=== PATIENT | male | born 1975 | race American Indian/Alaskan Native ===

== ENCOUNTER 2019-01-17 19:44 | Emergency (ER) | payer SELFPAY ==
--- NOTE | 2019-01-17 20:21 | Emergency Department Report ---
Blank Doc - Documentation Documentation: this is a 43-year-old male that presents with back itching. Denies any facial swelling or angioedema. This initial assessment/diagnostic orders/clinical plan/treatment(s) is/are subject to change based on patient's health status, clinical progression and re- assessment by fellow clinical providers in the ED. Further treatment and workup at subsequent clinical providers discretion. Patient/guardians urged not to elope from the ED as their condition may be serious if not clinically assessed and managed. Initial orders include: 1- Patient sent to [facility] for further evaluation and treatment
[2019-01-17] MEDS ORDERED: NORCO 5/325 PO ONE (23:54)
[2019-01-17] MEDS ORDERED: DELTASONE PO ONE (23:54)
[2019-01-17] MEDS ORDERED: VALTREX PO ONE (23:54)
--- NOTE | 2019-01-18 01:18 | Emergency Department Report ---
ED Rash HPI - HPI Chief Complaint: Skin Rash Stated Complaint: ITCHING Time Seen by Provider: 01/17/19 20:20 Duration: 2 Days Location: Back (left flank ) Rash Symptoms: Yes Itching, Yes Blistering, No Facial Swelling, No Tongue/Oral Swelling, No Breathing Difficulties, No Peeling, No Fever, No Lightheaded, No Malaise, No Myalgias Severity: moderate Other History: this is a 43-year-old male that presents with back itching. Denies any facial swelling or angioedema. ED Review of Systems ROS: Stated complaint: ITCHING Other details as noted in HPI Constitutional: denies: chills, fever Eyes: denies: eye pain, eye discharge, vision change ENT: denies: ear pain, throat pain Respiratory: denies: cough, shortness of breath, wheezing Cardiovascular: denies: chest pain, palpitations Endocrine: no symptoms reported Gastrointestinal: denies: abdominal pain, nausea, diarrhea Genitourinary: denies: urgency, dysuria Musculoskeletal: denies: back pain, joint swelling, arthralgia Skin: rash, lesions, pruritus Neurological: denies: headache, weakness, paresthesias Psychiatric: denies: anxiety, depression Hematological/Lymphatic: denies: easy bleeding, easy bruising ED Past Medical Hx - Past Medical History Previous Medical History?: Yes Hx Hypertension: Yes Additional medical history: anemia - Surgical History Past Surgical History?: No - Social History Smoking Status: Never Smoker Substance Use Type: None - Medications Home Medications: Home Medications Medication Instructions Recorded Confirmed Last Taken Type Ferrous Sulfate [Feosol 325 MG tab] 325 mg PO TID #90 tablet 04/05/17 Unknown Rx Lidocaine [Lidocaine Cream] 15 gm TP TID PRN #1 tube 01/18/19 Unknown Rx Valacyclovir HCl [Valtrex] 1,000 mg PO BID 10 Days #20 tablet 01/18/19 Unknown Rx predniSONE [Deltasone] 40 mg PO QDAY 5 Days #10 tab 01/18/19 Unknown Rx traMADol [Ultram] 50 mg PO Q6HR PRN #12 tablet 01/18/19 Unknown Rx Rash Exam - Exam General: Vital signs noted. No distress. Alert and acting appropriately. HEENT: No Periorbital Edema, No Conjuctival Injection, No Chemosis, No Perioral Edema, No Tongue Edema, No Uvular Edema, No Compromised Airway, No Drooling Lungs: Yes Good Air Exchange (Normal Breath Sounds), No Wheezes, No Ronchi, No Stridor, No Cough, No Labored Respirations, No Retractions, No Use of Accessory Muscles, No Other Abnormal Lung Sounds Heart: Yes Regular, No Murmur Skin: Yes Urticarial Rash, Yes Excoriations, Yes Tenderness, Yes Erythema, Yes Encrustations, No Weeping, No Edema Other: Positive: Abdomen Normal, Neurologic Normal, Musculoskeletal Normal ED Course Vital Signs 01/17/19 01/18/19 20:23 00:45 Temperature 97.2 F L Pulse Rate 91 H Respiratory 18 16 Rate Blood Pressure 166/104 O2 Sat by Pulse 100 Oximetry ED Medical Decision Making - Medical Decision Making this is a shingles rash t left flank, plan prednisone, valtrax, ultram follow up with pcp in 2-3 days return to ed if symptoms worsen, pt verbalized agreement and understanding of discharge plan Critical care attestation.: If time is entered above; I have spent that time in minutes in the direct care of this critically ill patient, excluding procedure time. ED Disposition Clinical Impression: Shingles Qualifiers: Herpes zoster complications: without complications Qualified Code(s): B02.9 - Zoster without complications Disposition: DC-01 TO HOME OR SELFCARE Is pt being admited?: No Does the pt Need Aspirin: No Condition: Stable Instructions: Herpes Zoster (ED) Prescriptions: predniSONE [Deltasone] 40 mg PO QDAY 5 Days #10 tab Lidocaine [Lidocaine Cream] 15 gm TP TID PRN #1 tube PRN Reason: pain traMADol [Ultram] 50 mg PO Q6HR PRN #12 tablet PRN Reason: Pain Valacyclovir HCl [Valtrex] 1,000 mg PO BID 10 Days #20 tablet Referrals: BENJY NOWAK MD [Primary Care Provider] - 3-5 Days Forms: Work/School Release Form(ED) Time of Disposition: 01:18
[2019-01-18 01:54] VITALS: BP 145/91
== END 2019-01-18 01:54 | disposition home or self-care (01) ==
LOC: ED 19:44
DX: B02.9 Zoster without complications (principal)
CPT/HCPCS: 99282; J7512

== ENCOUNTER 2019-04-30 08:43 | Emergency (ER) | payer OTHER ==
[2019-04-30 08:52] VITALS: BP 138/82
[2019-04-30] MEDS ORDERED: IBUPROFEN 600 MG TAB PO ONE (09:01)
[2019-04-30] MEDS ORDERED: ACETAMINOPHEN 500 MG TAB PO ONE (10:03)
[2019-04-30] MEDS ORDERED: AMOXICILLIN/K CLAV 875/125MG TAB PO ONE (10:07)
--- NOTE | 2019-04-30 10:11 | Emergency Department Report ---
HPI - General Chief Complaint: Headache Time Seen by Provider: 04/30/19 09:57 - HPI HPI: 43-year-old -Turkish male presents to the emergency department with complaint of a one-day history of fever, chills, bodyaches, sore throat and headache. He has not taken anything for her symptoms prior to presentation. He has a past medical history of hypertension. 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 No sick contacts at home. He has some pain with swallowing but is able to do so. He denies any vision change, slurred speech or any neurological deficits. ED Past Medical Hx - Past Medical History Previous Medical History?: Yes Hx Hypertension: Yes Additional medical history: anemia - Social History Smoking Status: Never Smoker - Medications Home Medications: Home Medications Medication Instructions Recorded Confirmed Last Taken Type Ferrous Sulfate [Feosol 325 MG tab] 325 mg PO TID #90 tablet 04/05/17 Unknown Rx Lidocaine [Lidocaine Cream] 15 gm TP TID PRN #1 tube 01/18/19 Unknown Rx Valacyclovir HCl [Valtrex] 1,000 mg PO BID 10 Days #20 tablet 01/18/19 Unknown Rx predniSONE [Deltasone] 40 mg PO QDAY 5 Days #10 tab 01/18/19 Unknown Rx traMADoL [Ultram] 50 mg PO Q6HR PRN #12 tablet 01/18/19 Unknown Rx Amoxicillin [Trimox CAP] 500 mg PO Q8H #30 capsule 04/30/19 Unknown Rx ED Review of Systems ROS: Stated complaint: MIGRAINE Other details as noted in HPI Constitutional: chills, fever Eyes: denies: eye pain, vision change ENT: throat pain. denies: ear pain Respiratory: denies: cough, shortness of breath Cardiovascular: denies: chest pain, palpitations Gastrointestinal: denies: abdominal pain, vomiting Genitourinary: denies: dysuria, discharge Musculoskeletal: myalgia. denies: joint swelling Skin: denies: rash, lesions Neurological: headache. denies: weakness, numbness, paresthesias Physical Exam - Physical Exam Vital Signs: Vital Signs 04/30/19 04/30/19 08:51 08:52 Temperature 102.5 F H Pulse Rate 120 H Respiratory 16 Rate Blood Pressure 138/82 O2 Sat by Pulse 95 Oximetry Physical Exam: GENERAL: The patient is well-developed well-nourished. HENT: Normocephalic. Atraumatic. Patient has moist mucous membranes. Patient has bilateral tonsillar hypertrophy, erythema and right-sided tonsillar exudate. No drooling or trismus. EYES: Extraocular motions are intact. NECK: Supple. Trachea is midline. CHEST/LUNGS: Clear to auscultation. There is no respiratory distress noted. HEART/CARDIOVASCULAR: Regular. There is mild tachycardia. There is no murmur. ABDOMEN: There is no abdominal distention. SKIN: Skin is warm and dry. NEURO: The patient is awake, alert, and oriented. The patient is cooperative. The patient has no focal neurologic deficits. Normal speech. MUSCULOSKELETAL: There is no tenderness or deformity. There is no evidence of acute injury. ED Course Vital Signs 04/30/19 04/30/19 08:51 08:52 Temperature 102.5 F H Pulse Rate 120 H Respiratory 16 Rate Blood Pressure 138/82 O2 Sat by Pulse 95 Oximetry ED Medical Decision Making - Medical Decision Making This patient presents with fever, tachycardia, sore throat, body aches. Positive for strep pharyngitis. Given Tylenol, ibuprofen and Augmentin. Upon reevaluation the fever has resolved and the tachycardia has improved. Patient will be placed on amoxicillin. We discussed using Tylenol and ibuprofen for control of fever. He has been instructed to follow-up with primary care and return to the ER with any worsening of his symptoms or any acute distress. - Differential Diagnosis strep pharyngitis, viral pharyngitis, mononucleosis Critical Care Time: No Critical care attestation.: If time is entered above; I have spent that time in minutes in the direct care of this critically ill patient, excluding procedure time. ED Disposition Clinical Impression: Strep pharyngitis Disposition: DC-01 TO HOME OR SELFCARE Is pt being admited?: No Condition: Stable Instructions: Strep Throat (ED), Fever in Adults (ED) Additional Instructions: Please follow-up with a primary care physician in the next few days. Return to the emergency Department with any worsening of your symptoms or any acute distress. Please do not share any food or drink with anyone and utilize handwashing so you do not spread infection. You can use Tylenol every 4-6 hours and ibuprofen every 6-8 hours, using weight-based dosing on the back of the bottle, for any fever or discomfort. Take the antibiotics as prescribed. Prescriptions: Amoxicillin [Trimox CAP] 500 mg PO Q8H #30 capsule Referrals: PRIMARY CARE, [Primary Care Provider] - 2-3 Days MARY ORTA MD [Staff Physician] - 2-3 Days [facility] [Outside] - 2-3 Days Forms: Work/School Release Form(ED) Time of Disposition: 11:04
== END 2019-04-30 11:18 | disposition home or self-care (01) ==
LOC: ED 08:43
DX: J02.0 Streptococcal pharyngitis (principal); I10 Essential (primary) hypertension; D64.9 Anemia, unspecified; Z79.2 Long term (current) use of antibiotics; Z79.899 Other long term (current) drug therapy
CPT/HCPCS: 87430

== ENCOUNTER 2020-04-02 00:24 | Emergency (ER) | payer OTHER ==
[2020-04-02 01:28] VITALS: BP 172/105
== END 2020-04-02 04:20 | disposition left against medical advice (07) ==
LOC: ED 00:24
DX: B02.9 Zoster without complications (principal); Z53.21 Procedure and treatment not carried out due to patient leaving prior to being seen by health care provider

== ENCOUNTER 2021-06-02 19:07 | Emergency (ER) | payer OTHER ==
[2021-06-02 21:33] LABS: Basophils % (Auto) 0.4 % (0.0-1.8); Eosinophils # (Auto) 0.4 K/mm3 (0.0-0.4); Eosinophils % (Auto) 8.1 % (0.0-4.3); Hematocrit 50.9 % (35.5-45.6); Hemoglobin 16.3 gm/dl (11.8-15.2); Lymphocytes % (Auto) 38.3 % (13.4-35.0); Mean Corpuscular HGB Conc 32 % (32-34); Mean Corpuscular Volume 90 fl (84-94); Monocytes # (Auto) 0.3 K/mm3 (0.0-0.8); Monocytes % (Auto) 5.6 % (0.0-7.3); Platelet Count 205 K/mm3 (140-440); Red Blood Count 5.64 M/mm3 (3.65-5.03)
--- NOTE | 2021-06-02 21:39 | XRay Report ---
CHEST 2 VIEWS INDICATION / CLINICAL INFORMATION: hbp. COMPARISON: None available. FINDINGS: SUPPORT DEVICES: None. HEART / MEDIASTINUM: No significant abnormality. LUNGS / PLEURA: No significant pulmonary or pleural abnormality. No pneumothorax. ADDITIONAL FINDINGS: No significant additional findings. IMPRESSION: 1. No acute findings. Signer Name: Weston Coyle MD Signed: 06/02/2021 9:34 PM Workstation Name: [id number]
[2021-06-02 21:51] LABS: Alanine Aminotransferase 16 units/L (7-56); Albumin 4.6 g/dL (3.9-5); BUN/Creatinine Ratio 20; Blood Urea Nitrogen 18 mg/dL (9-20); Hemolysis Index 20
[2021-06-03] MEDS ORDERED: diphenhydrAMINE 25 MG CAP PO ONE (00:44)
[2021-06-03] MEDS ORDERED: ACETAMINOPHEN 500 MG TAB PO ONE (00:44)
[2021-06-03] MEDS ORDERED: METOCLOPRAMIDE 10 MG TAB PO ONE (00:44)
--- NOTE | 2021-06-03 00:55 | Emergency Department Report ---
ED General Adult HPI - General Chief complaint: High BP Stated complaint: BLOOD PRESSURE Time Seen by Provider: 06/03/21 00:40 Source: patient Mode of arrival: Ambulatory Limitations: No Limitations - History of Present Illness Initial comments: Patient is a 46-year-old male with history of hypertension and migraine headaches who presents for hypertension x2 days. Patient states he did take blood pressure medication today he is currently controlled with lisinopril p.o. 20 mg tablets once daily. BP 161/82 in triage today. Patient states secondary complaint of sinus congestion and headache. Headache is in same location as previous headaches same intensity as previous headaches headaches are controlled with Soma triptan prescribed by neurology. Patient states intermittent adherence to medication regimen. Patient rates headache pain at 4/10 at this time sharp achy frontal. Patient denies photophobia there is no nausea vomiting no fever no chills no throat pain no ear pain. Patient denies other complaint. There are no other exacerbating or relieving factors. - Related Data Previous Rx's Medication Instructions Recorded Last Taken Type Ferrous Sulfate [Feosol 325 MG tab] 325 mg PO TID #90 tablet 04/05/17 Unknown Rx Lidocaine [Lidocaine Cream] 15 gm TP TID PRN #1 tube 01/18/19 Unknown Rx Valacyclovir HCl [Valtrex] 1,000 mg PO BID 10 Days #20 tablet 01/18/19 Unknown Rx predniSONE [Deltasone] 40 mg PO QDAY 5 Days #10 tab 01/18/19 Unknown Rx traMADoL [Ultram] 50 mg PO Q6HR PRN #12 tablet 01/18/19 Unknown Rx Amoxicillin [Trimox CAP] 500 mg PO Q8H #30 capsule 04/30/19 Unknown Rx Acetaminophen [Acetaminophen 8 650 mg PO Q8H PRN #20 tablet.er 10/03/19 Unknown Rx Hour] Amoxicillin/K Clav Tab [Augmentin 1 tab PO Q12HR #20 tab 10/03/19 Unknown Rx 875 mg] Acetaminophen 1,000 mg PO QID PRN #30 capsule 06/03/21 Unknown Rx Metoclopramide [Reglan] 10 mg PO Q6H PRN #30 tablet 06/03/21 Unknown Rx lisinopriL [Lisinopril] 20 mg PO DAILY #30 tablet 06/03/21 Unknown Rx Allergies Allergy/AdvReac Type Severity Reaction Status Date / Time diphenhydramine AdvReac Hives Verified 06/03/21 00:55 [From Benadryl] ED Review of Systems ROS: Stated complaint: BLOOD PRESSURE Other details as noted in HPI Constitutional: denies: chills, fever Eyes: denies: eye pain, eye discharge, vision change ENT: congestion, other (sinus pressure ). denies: ear pain, throat pain, dental pain, hearing loss, epistaxis Respiratory: denies: cough, shortness of breath, wheezing Cardiovascular: denies: chest pain, palpitations Endocrine: no symptoms reported Gastrointestinal: denies: abdominal pain, nausea, vomiting, diarrhea Genitourinary: denies: urgency, dysuria Musculoskeletal: denies: back pain, joint swelling, arthralgia Skin: denies: rash, lesions Neurological: denies: headache, weakness, numbness, paresthesias, confusion, vertigo Psychiatric: denies: anxiety, depression Hematological/Lymphatic: denies: easy bleeding, easy bruising ED Past Medical Hx - Past Medical History Previous Medical History?: No Hx Hypertension: Yes Additional medical history: anemia - Surgical History Past Surgical History?: No - Social History Smoking Status: Never Smoker Substance Use Type: None - Medications Home Medications: Home Medications Medication Instructions Recorded Confirmed Last Taken Type Ferrous Sulfate [Feosol 325 MG tab] 325 mg PO TID #90 tablet 04/05/17 Unknown Rx Lidocaine [Lidocaine Cream] 15 gm TP TID PRN #1 tube 01/18/19 Unknown Rx Valacyclovir HCl [Valtrex] 1,000 mg PO BID 10 Days #20 tablet 01/18/19 Unknown Rx predniSONE [Deltasone] 40 mg PO QDAY 5 Days #10 tab 01/18/19 Unknown Rx traMADoL [Ultram] 50 mg PO Q6HR PRN #12 tablet 01/18/19 Unknown Rx Amoxicillin [Trimox CAP] 500 mg PO Q8H #30 capsule 04/30/19 Unknown Rx Acetaminophen [Acetaminophen 8 650 mg PO Q8H PRN #20 tablet.er 10/03/19 Unknown Rx Hour] Amoxicillin/K Clav Tab [Augmentin 1 tab PO Q12HR #20 tab 10/03/19 Unknown Rx 875 mg] Acetaminophen 1,000 mg PO QID PRN #30 capsule 06/03/21 Unknown Rx Metoclopramide [Reglan] 10 mg PO Q6H PRN #30 tablet 06/03/21 Unknown Rx lisinopriL [Lisinopril] 20 mg PO DAILY #30 tablet 06/03/21 Unknown Rx ED Physical Exam - General Limitations: No Limitations General appearance: alert, in no apparent distress - Head Head exam: Present: atraumatic, normocephalic - Eye Eye exam: Present: PERRL, EOMI. Absent: conjunctival injection, nystagmus Pupils: Present: normal accommodation - ENT ENT exam: Present: normal orophraynx, mucous membranes moist, TM's normal bilaterally, normal external ear exam - Neck Neck exam: Present: normal inspection, full ROM. Absent: tenderness, meningismus, lymphadenopathy, thyromegaly - Respiratory Respiratory exam: Present: normal lung sounds bilaterally. Absent: respiratory distress, wheezes, stridor, chest wall tenderness - Cardiovascular Cardiovascular Exam: Present: regular rate, normal rhythm, normal heart sounds. Absent: systolic murmur, diastolic murmur, rubs, gallop - GI/Abdominal GI/Abdominal exam: Present: soft, normal bowel sounds. Absent: distended, tenderness, bruit, hernia - Rectal Rectal exam: Present: deferred - Extremities Exam Extremities exam: Present: normal inspection, full ROM, normal capillary refill. Absent: tenderness - Back Exam Back exam: Present: normal inspection, full ROM. Absent: CVA tenderness (R), CVA tenderness (L) - Neurological Exam Neurological exam: Present: alert, oriented X3, CN II-XII intact, normal gait, reflexes normal. Absent: motor sensory deficit - Expanded Neurological Exam Expanded Patient oriented to: Present: person, place, time Speech: Present: fluid speech Cranial nerves: EOM's Intact: Normal, Nystagmus: Normal Cerebellar function: Finger to Nose: Normal Motor strength exam: RUE: 5, LUE: 5, RLE: 5, LLE: 5 Best Eye Response (Bobby): (4) open spontaneously Best Motor Response (Vinton): (6) obeys commands Best Verbal Response (Vinton): (5) oriented Vinton Total: 15 - Psychiatric Psychiatric exam: Present: normal affect, normal mood - Skin Skin exam: Present: warm, dry, intact, normal color. Absent: rash ED Course Vital Signs 06/02/21 21:06 Temperature 98.0 F Pulse Rate 65 Respiratory 16 Rate Blood Pressure 161/82 [Left] O2 Sat by Pulse 98 Oximetry ED Medical Decision Making - Lab Data Result diagrams: 06/02/21 21:19 06/02/21 21:19 Labs 06/02/21 06/02/21 21:19 21:19 WBC 5.3 RBC 5.64 H Hgb 16.3 H Hct 50.9 H MCV 90 MCH 29 MCHC 32 RDW 13.0 L Plt Count 205 Lymph % (Auto) 38.3 H Geary % (Auto) 5.6 Eos % (Auto) 8.1 H Baso % (Auto) 0.4 Lymph # (Auto) 2.0 Geary # (Auto) 0.3 Eos # (Auto) 0.4 Baso # (Auto) 0.0 Seg Neutrophils % 47.6 Seg Neutrophils # 2.5 Sodium 142 Potassium 4.3 Chloride 103.5 Carbon Dioxide 28 Anion Gap 15 BUN 18 Creatinine 0.9 Estimated GFR > 60 BUN/Creatinine Ratio 20 Glucose 102 H Calcium 10.0 Total Bilirubin 0.30 AST 18 ALT 16 Alkaline Phosphatase 88 Total Protein 7.5 Albumin 4.6 Albumin/Globulin Ratio 1.6 - Radiology Data Radiology results: report reviewed, image reviewed CHEST 2 VIEWS INDICATION / CLINICAL INFORMATION: hbp. COMPARISON: None available. FINDINGS: SUPPORT DEVICES: None. HEART / MEDIASTINUM: No significant abnormality. LUNGS / PLEURA: No significant pulmonary or pleural abnormality. No pneumot horax. ADDITIONAL FINDINGS: No significant additional findings. IMPRESSION: 1. No acute findings. Signer Name: Weston Nice MD Signed: 06/02/2021 9:34 PM Workstation Name: [id number] Transcribed By: SB Dictated By: WESTON NICE MD Electronically Authenticated By: WESTON NICE MD Signed Date/Time: 06/02/212133 - Medical Decision Making Headache is improved, BP is improved, plan continue to take lisinopril as scheduled. Take medications as prescribed. Follow-up with your doctor in 2 to 3 days. Return to emergency department should symptoms worsen. Patient verbalized agreement and understanding with discharge plan. Patient DC'd home in stable condition at this time. Critical care attestation.: If time is entered above; I have spent that time in minutes in the direct care of this critically ill patient, excluding procedure time. ED Disposition Clinical Impression: Essential hypertension Headache Qualifiers: Headache type: unspecified Headache chronicity pattern: acute headache Intractability: not intractable Qualified Code(s): R51.9 - Headache, unspecified Disposition: HOME / SELF CARE / HOMELESS Is pt being admited?: No Does the pt Need Aspirin: No Condition: Stable Instructions: Hypertension (ED), DASH Eating Plan, Managing Your Hypertension, Migraine Headache, [id number] Additional Instructions: Take medications as prescribed, follow-up with your doctor in 2 to 3 days. Continue to follow neurology for headaches as scheduled. Return to emergency department should symptoms worsen. Prescriptions: Acetaminophen 1,000 mg PO QID PRN #30 capsule PRN Reason: headache lisinopriL [Lisinopril] 20 mg PO DAILY #30 tablet Metoclopramide [Reglan] 10 mg PO Q6H PRN #30 tablet PRN Reason: Headache Referrals: MICHAEL PATTERSON MD [Staff Physician] - 3-5 Days JAMAL BAJWA MD [Referring] - 3-5 Days Forms: Work/School Release Form(ED) Time of Disposition: 01:19
[2021-06-03 01:50] VITALS: BP 150/88
== END 2021-06-03 01:48 | disposition home or self-care (01) ==
LOC: ED 19:07
DX: G43.909 Migraine, unspecified, not intractable, without status migrainosus (principal); I10 Essential (primary) hypertension
CPT/HCPCS: 36415; 71046; 80053; 85025; 99283

== ENCOUNTER 2021-06-16 11:05 | Emergency (ER) | payer OTHER ==
[2021-06-16 12:09] VITALS: BP 122/69
--- NOTE | 2021-06-16 12:10 | Emergency Department Report ---
ED General Adult HPI - General Stated complaint: HEADACHE Time Seen by Provider: 06/16/21 12:03 - History of Present Illness Initial comments: Patient presented secondary to migraine headache. Has a long history of migraines. This been present for several days now. He is used his regular migraine medication without symptomatic improvement. There is no trauma. Is no fevers or chills. This not thunderclap or abrupt onset in nature. Was not a maximum intensity the time of onset. He has no stiff neck or back pain. Pain is located in the right parietal and temporal area. It is throbbing in nature. He has pain by the right eye. There is no change in vision. Again, this is his usual migraine. He just has not responded to his usual treatment. Patient also reports that his lower back is sore. He does not recall lifting anything heavy. He has no pain going down the legs. He has no fevers or chills per there is no muscle aches or body aches. There are no urinary symptoms. - Related Data Previous Rx's Medication Instructions Recorded Last Taken Type Ferrous Sulfate [Feosol 325 MG tab] 325 mg PO TID #90 tablet 04/05/17 Unknown Rx Lidocaine [Lidocaine Cream] 15 gm TP TID PRN #1 tube 01/18/19 Unknown Rx Valacyclovir HCl [Valtrex] 1,000 mg PO BID 10 Days #20 tablet 01/18/19 Unknown Rx predniSONE [Deltasone] 40 mg PO QDAY 5 Days #10 tab 01/18/19 Unknown Rx Acetaminophen [Acetaminophen 8 650 mg PO Q8H PRN #20 tablet.er 10/03/19 Unknown Rx Hour] Acetaminophen 1,000 mg PO QID PRN #30 capsule 06/03/21 Unknown Rx Metoclopramide [Reglan] 10 mg PO Q6H PRN #30 tablet 06/03/21 Unknown Rx lisinopriL [Lisinopril] 20 mg PO DAILY #30 tablet 06/03/21 Unknown Rx Benzonatate [Tessalon Perles] 100 mg PO Q8HR #30 capsule 06/16/21 Unknown Rx Butalb/Acetaminophen/Caffeine 1 cap PO Q6HR PRN #15 cap 06/16/21 Unknown Rx [Fioricet 50-300-40 mg CAP] Ibuprofen [Motrin] 600 mg PO Q8H PRN #20 tablet 06/16/21 Unknown Rx Allergies Allergy/AdvReac Type Severity Reaction Status Date / Time diphenhydramine AdvReac Hives Verified 06/03/21 00:55 [From Benadryl] ED Review of Systems ROS: Stated complaint: HEADACHE Other details as noted in HPI Comment: All other systems reviewed and negative Constitutional: denies: fever Eyes: denies: vision change ENT: denies: throat pain Respiratory: denies: cough Cardiovascular: denies: chest pain Endocrine: denies: unexplained weight loss Gastrointestinal: denies: abdominal pain Genitourinary: denies: dysuria Musculoskeletal: as per HPI Skin: denies: rash Neurological: as per HPI Hematological/Lymphatic: denies: easy bruising ED Past Medical Hx - Past Medical History Hx Hypertension: Yes Additional medical history: anemia - Family History Family history: hypertension - Social History Smoking Status: Never Smoker Substance Use Type: None - Medications Home Medications: Home Medications Medication Instructions Recorded Confirmed Last Taken Type Ferrous Sulfate [Feosol 325 MG tab] 325 mg PO TID #90 tablet 04/05/17 Unknown Rx Lidocaine [Lidocaine Cream] 15 gm TP TID PRN #1 tube 01/18/19 Unknown Rx Valacyclovir HCl [Valtrex] 1,000 mg PO BID 10 Days #20 tablet 01/18/19 Unknown Rx predniSONE [Deltasone] 40 mg PO QDAY 5 Days #10 tab 01/18/19 Unknown Rx Acetaminophen [Acetaminophen 8 650 mg PO Q8H PRN #20 tablet.er 10/03/19 Unknown Rx Hour] Acetaminophen 1,000 mg PO QID PRN #30 capsule 06/03/21 Unknown Rx Metoclopramide [Reglan] 10 mg PO Q6H PRN #30 tablet 06/03/21 Unknown Rx lisinopriL [Lisinopril] 20 mg PO DAILY #30 tablet 06/03/21 Unknown Rx Benzonatate [Tessalon Perles] 100 mg PO Q8HR #30 capsule 06/16/21 Unknown Rx Butalb/Acetaminophen/Caffeine 1 cap PO Q6HR PRN #15 cap 06/16/21 Unknown Rx [Fioricet 50-300-40 mg CAP] Ibuprofen [Motrin] 600 mg PO Q8H PRN #20 tablet 06/16/21 Unknown Rx ED Physical Exam - General Limitations: No Limitations, Other (Pulse ox noted and normal based on my review of 96%) General appearance: alert, in no apparent distress - Head Head exam: Present: atraumatic, normocephalic - Eye Eye exam: Present: normal appearance, EOMI. Absent: scleral icterus - ENT ENT exam: Present: mucous membranes dry, normal external ear exam - Neck Neck exam: Present: normal inspection. Absent: meningismus - Respiratory Respiratory exam: Present: normal lung sounds bilaterally. Absent: respiratory distress - Cardiovascular Cardiovascular Exam: Present: regular rate, normal rhythm - GI/Abdominal GI/Abdominal exam: Present: soft. Absent: tenderness - Extremities Exam Extremities exam: Present: normal capillary refill. Absent: calf tenderness - Back Exam Back exam: Present: paraspinal tenderness (Lumbar). Absent: CVA tenderness (R), CVA tenderness (L), vertebral tenderness - Neurological Exam Neurological exam: Present: alert, oriented X3, CN II-XII intact, normal gait. Absent: motor sensory deficit - Psychiatric Psychiatric exam: Present: normal affect, normal mood - Skin Skin exam: Present: warm, dry ED Course Vital Signs 06/16/21 06/16/21 12:06 12:07 Temperature 98.8 F Pulse Rate 77 Respiratory 18 Rate Blood Pressure 122/69 [Right] O2 Sat by Pulse 97 Oximetry - Reevaluation(s) Reevaluation #1: 06/16/21 14:15 Patient was treated symptomatically and discharged. ED Medical Decision Making - Medical Decision Making Patient present with back pain that is nontraumatic in nature. There is no CVA tenderness suggestive of pyelonephritis. There is no urinary symptoms suggestive of urinary tract infection. He has no abdominal tenderness or pulsatile mass which is just referred pain from a AAA. There is no symptoms suggestive of cord injury or cauda equina or epidural abscess. He also reported a headache which was his typical migraine. It was not thunderclap in nature. I do not believe this represents subarachnoid hemorrhage. There is no trauma to suggest subdural or epidural hematomas. Patient had no fever or stiff neck suggestive of meningitis. Critical Care Time: No Critical care attestation.: If time is entered above; I have spent that time in minutes in the direct care of this critically ill patient, excluding procedure time. ED Disposition Clinical Impression: Acute URI Migraine headache Qualifiers: Migraine type: without aura Status migrainosus presence: without status migrainosus Intractability: not intractable Qualified Code(s): G43.009 - Migraine without aura, not intractable, without status migrainosus Low back pain Qualifiers: Chronicity: acute Back pain laterality: bilateral Sciatica presence: without sciatica Qualified Code(s): M54.50 - Low back pain, unspecified Disposition: 01 HOME / SELF CARE / HOMELESS Is pt being admited?: No Condition: Stable Instructions: Viral Respiratory Infection, [id number], Recurrent Migraine Headache, [id number], Back Exercises, [id number] Additional Instructions: Drink plenty water. Use Tylenol for fever. Return for problems. Ice your back. Continue home medication. Follow-up with your regular doctor for recheck and further management. Prescriptions: Butalb/Acetaminophen/Caffeine [Fioricet 50-300-40 mg CAP] 1 cap PO Q6HR PRN #15 cap PRN Reason: Headache Ibuprofen [Motrin] 600 mg PO Q8H PRN #20 tablet PRN Reason: Pain Benzonatate [Tessalon Perles] 100 mg PO Q8HR #30 capsule Referrals: PRIMARY CARE, [Primary Care Provider] - 3-5 Days Forms: Work/School Release Form(ED)
== END 2021-06-16 12:09 | disposition home or self-care (01) ==
LOC: ED 11:05
DX: G43.909 Migraine, unspecified, not intractable, without status migrainosus (principal); J06.9 Acute upper respiratory infection, unspecified; M54.50 Low back pain, unspecified; I10 Essential (primary) hypertension; Z88.8 Allergy status to other drugs, medicaments and biological substances
CPT/HCPCS: 99282